=== PATIENT | female | born 1960 | race Caucasian/White ===

== ENCOUNTER 2017-11-24 16:34 | Emergency (ER) | payer MEDICARE, OTHER ==
[~2017-11-24] VITALS: Ht 165.1 cm; Wt 99.8 kg
[~2017-11-24 16:34] MED LIST: ASPI325 PO; METF500C PO; OLAN7.5 PO; OXCA300 PO; OXYB5 PO
[2017-11-24 18:25] LABS: BASOPHILS ABSOLUTE AUTO 0.07 K/mm3 (0.00-0.23); BASOPHILS PERCENT AUTO 1 % (0-2); EOSINOPHILS ABSOLUTE AUTO 0.54 K/mm3 (0.00-0.68); EOSINOPHILS PERCENT AUTO 7 % (0-6); Hematocrit 37.1 % (33.0-51.0); Hemoglobin 12.5 g/dL (11.5-16.0); IMMATURE GRAN ABSOLUTE AUTO 0.04 K/mm3 (0.00-0.10); IMMATURE GRAN PERCENT AUTO 1 % (0-1); LYMPHOCYTES ABSOLUTE AUTO 2.53 K/mm3 (0.84-5.20); LYMPHOCYTES PERCENT AUTO 31 % (21-46); MONOCYTES ABSOLUTE AUTO 0.65 K/mm3 (0.16-1.47); MONOCYTES PERCENT AUTO 8 % (4-13); Mean Corpuscular HGB 30.5 pg (26.0-34.0); Mean Corpuscular HGB Conc 33.7 g/dL (31.5-36.5); Mean Corpuscular Volume 91 fL (80-100); Mean Platelet Volume 10.4 fL (9.1-12.4); NEUTROPHILS ABSOLUTE AUTO 4.29 K/mm3 (1.96-9.15); NEUTROPHILS PERCENT AUTO 53 % (41-73); Platelet Count 270 K/mm3 (150-400); RDW Coefficient Variation 12.3 % (11.7-14.2); RDW Standard Deviation 40.1 fL (35.1-46.3); White Blood Cell Count 8.12 K/mm3 (4.00-11.30)
[2017-11-24 18:35] LABS: Alanine Aminotransfer (ALT/SGP 76 U/L (12-78); Albumin, Blood 3.8 g/dL (3.4-5.0); Alk Phos 107 U/L (50-136); Anion Gap 11 mmol/L (6-16); Aspartate Aminotrans (AST/SGOT 38 U/L (12-37); Bilirubin, Total 0.2 mg/dL (0.1-1.0); Blood Urea Nitrogen 18 mg/dL (8-24); Bun/Creatinine Ratio 19.6 (12.0-20.0); CO2, Blood 27 mmol/L (21-32); Calcium, Blood 9.3 mg/dL (8.5-10.1); Chloride, Blood 104 mmol/L (98-108); Creatinine, Blood 0.92 mg/dL (0.40-1.00); Globulin, Blood 3.9 g/dL (2.2-4.0); Glomerular Filtration Rate >60 (60-); Glucose, Blood 141 mg/dL (70-99); Potassium, Blood 3.5 mmol/L (3.5-5.5); Sodium, Blood 142 mmol/L (136-145); Total Protein, Blood 7.7 g/dL (6.4-8.2); Troponin I <0.015 ng/mL (0.000-0.040)
[2017-11-24] MEDS ORDERED: ELIQUIS2.5 MG PO (20:46)
[2017-11-24] MEDS ORDERED: Prozac20 MG PO (21:47)
[2017-11-24] MEDS ORDERED: HYDCHL12.5 PO (21:47)
[2017-11-24] MEDS ORDERED: LOSA25 PO (21:47)
[2017-11-24] MEDS ORDERED: Cranberry500 MG PO (21:48)
[2017-11-24] MEDS ORDERED: PROP10 PO (21:48)
[2017-11-24] MEDS ORDERED: FISH OIL 1,2001 EAC1 PO (21:50)
[2017-11-24] MEDS ORDERED: PROBIOTIC1 EAC1 PO (21:51)
[2017-11-24] MEDS ORDERED: ASCO500 PO (21:51)
[2017-11-24] MEDS ORDERED: ERGO400 PO (21:51)
== END 2017-11-24 22:43 | disposition home or self-care (01) ==
LOC: ER 16:34
PROVIDERS: Emergency Medicine
DX: R07.89 Other chest pain (principal); F31.9 Bipolar disorder, unspecified; E11.9 Type 2 diabetes mellitus without complications; F17.200 Nicotine dependence, unspecified, uncomplicated; Z88.2 Allergy status to sulfonamides; Z79.899 Other long term (current) drug therapy; Z79.84 Long term (current) use of oral hypoglycemic drugs; Z86.711 Personal history of pulmonary embolism; Z79.02 Long term (current) use of antithrombotics/antiplatelets
CPT/HCPCS: 36415; 71046; 80053; 84484; 85025; 85379; 93005; 93010; 99284

== ENCOUNTER → 2018-01-26 | Outpatient (CLI) | payer MEDICARE, OTHER ==
[~2018-01-26] MED LIST changes: +ASCO500 PO; +Cranberry500 MG PO; +ELIQUIS2.5 MG PO; +ERGO400 PO; +FISH OIL 1,2001 EAC1 PO; +HYDCHL12.5 PO; +LOSA25 PO; +METF500 PO; -METF500C PO; +PROBIOTIC1 EAC1 PO; +PROP10 PO; +Prozac20 MG
[2018-01-26 22:02] LABS: G. vaginalis (DNA Probe) Negative (NEGATIVE); T. vaginalis (DNA Probe) Negative (NEGATIVE)
[2018-01-26 22:03] LABS: Candida species (DNA Probe) Negative (NEGATIVE)
== END | disposition home or self-care (01) ==
LOC: LAB SHORT 13:00 → LAB 13:00
PROVIDERS: Physician Assistant
DX: N89.8 Other specified noninflammatory disorders of vagina (principal); R82.99 Other abnormal findings in urine
CPT/HCPCS: 87077; 87086; 87186; 87480; 87510; 87660

== ENCOUNTER → 2018-05-10 | Outpatient (CLI) | payer MEDICARE, OTHER | END | disposition home or self-care (01) | LOC: LAB SHORT 11:43 → LAB EV 11:43 | DX: N39.0 Urinary tract infection, site not specified (principal) | CPT/HCPCS: 87077; 87086; 87186 ==